=== PATIENT | female | born 1985 | race Two or more races ===

== ENCOUNTER 2025-05-28 17:43 | Emergency (ER) | payer MEDICAID, OTHER ==
[~2025-05-28] VITALS: Ht 157.5 cm; Wt 45.8 kg
[2025-05-28 18:10] VITALS: PULSE 104; RESP 12; O2SAT 98
--- NOTE | 2025-05-28 18:16 | ED.PDOC ---
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 Patient states that she is currently [id number] and has been experiencing vaginal bleeding onset, last night (05/27/25). She has established care with an Ob, and was told that she had a blighted ovum. Patient reports, was said to be an "anembryonic " and was said to be non-viable by her OB-PIPELINE TECHNICIAN. Patient relays, bleeding quality to be heavy with clots and to not have passed any products of conception or tissue since commencement of symptoms. Patient endorses, filling a brief every [id number]. Patient denies fatigue, faintness, nausea, vomiting, or dizziness. No other symptoms or modifying factors are present at this time. Chief Complaint: Vaginal Bleed Time Seen by MD: 18:30 Reviewed Notes: Nurses Notes, Medications, Allergies Allergies: Coded Allergies: Amoxicillin (Verified Allergy, Severe, 05/28/25) Clavulanic Acid (Verified Allergy, Severe, 05/28/25) Penicillins (Verified Allergy, Severe, 05/28/25) Cephalexin (Verified Allergy, Intermediate, RASH, 05/28/25) Information Source: Patient Mode of Arrival: Ambulatory Timing: Days Prehospital treatment: None Severity: Moderate Vaginal Discharge: None Vaginal Lesions: None Bleeding Quality: Bright Red Vaginal Mass: None Onset Of Mass/Bleeding: Spontaneous Sexual Activity: Last Consensual [place]: Unknown Control: None History of: Current Blood Type: Unknown Associated Signs and Symptoms: Vaginal Bleeding Past Medical History PAST MEDICAL HISTORY: Denies Surgical History: Denies all surgeries PIPELINE TECHNICIAN History: Denies all PIPELINE TECHNICIAN Hx Family History Family History: Unknown Social History Smoker: Non-Smoker Alcohol: Denies ETOH Use Drugs: Denies Drug Use Lives In: Home Constitutional: denies: chills, diaphoresis, fatigue, fever, malaise, sweats, weakness, others EENTM: denies: blurred vision, double vision, ear bleeding, ear discharge, ear drainage, ear pain, ear ringing, eye pain, eye redness, hearing loss, mouth pain, mouth swelling, nasal discharge, nose bleeding, nose congestion, nose pain, photophobia, tearing, throat pain, throat swelling, voice changes, others Respiratory: denies: cough, hemoptysis, orthopnea, SOB at rest, shortness of breath, SOB with excertion, stridor, wheezing, others Cardiovascular: denies: chest pain, dizzy spells, diaphoresis, Dyspnea on exertion, edema, irregular heart beat, left arm pain, lightheadedness, palpitations, PND, syncope, others Gastrointestinal: denies: abdomen distended, abdominal pain, blood streaked bowels, constipated, diarrhea, dysphagia, difficulty swallowing, hematemesis, melena, nausea, poor appetite, poor fluid intake, rectal bleeding, rectal pain, vomiting, others Genitourinary: reports: abnormal vagina bleeding, pain, ; denies: burning, dyspareunia, dysuria, flank pain, frequency, hematuria, incontinence, vagina discharge, urgency, others Neurological: denies: dizziness, fainting, headache, left sided numbness, left sided weakness, numbness, paresthesia, pre-existing deficit, right sided numbness, right sided weakness, seizure, speech problems, tingling, tremors, weakness, others Musculoskeletal: denies: back pain, gout, joint pain, joint swelling, muscle pain, muscle stiffness, neck pain, others Integumetry: denies: bruises, change in color, change in hair/nails, dryness, laceration, lesions, lumps, rash, wounds, others Allergic/Immunocompromised: denies: Difficulty Healing, Frequent Infections, Hives, Itching, others Hematologic/Lymphatic: denies: anemia, blood clots, easy bleeding, easy bruising, swollen glands, others Endocrine: denies: excessive hunger, excessive sweating, excessive thirst, excessive urination, flushing, intolerance to cold, intolerance to heat, un explained weight gain, unexplained weight loss, others Psychiatric: denies: anxiety, bipolar disorder, depression, hopeless, panic disorder, schizophrenia, sleepless, suicidal, others All Other Systems: Reviewed and Negative Physical Exam General Appearance: No Apparent Distress, Normal HEENT: Normal ENT Inspection, Pharynx Normal Neck: Full Range of Motion, Non-Tender, Normal, Normal Inspection Respiratory: Chest Non-Tender, Lungs Clear, No Accessory Muscle Use, No Respiratory Distress, Normal Breath Sounds Cardiovascular: No Edema, No Murmur, No Gallop, Normal Peripheral Pulses, Tachycardia Breast Exam: Deferred Gastrointestinal: No Organomegaly, Non Tender, No Pulsatile Mass, Normal Bowel Sounds, Soft Genitalia: Deferred Pelvic: Deferred Rectal: Deferred Extremities: No calf tenderness, Normal capillary refill, Normal inspection, Normal range of motion, Non-tender, No pedal edema Musculoskeletal : Apperance: Normal Neurologic: Alert, mud tank operator II-XII nml as Tested, No Motor Deficits, Normal Affect, Normal Mood, No Sensory Deficits Cerebellar Function: Normal Reflexes: Normal Skin: Dry, Normal Color, Warm Lymphatic: No Adenopathy Was a procedure done? Was a procedure done?: No Differential Diagnosis (PIPELINE TECHNICIAN) Vaginal Bleeding: - Incomplete, - Inevitable, - Threatened, Blood Loss Anemia, Ectopic X-Ray, Labs, Meds, VS Vital Signs Date Time Temp Pulse Resp B/P (MAP) Pulse Ox O2 Delivery O2 Flow Rate FiO2 05/28/25 20:00 82 05/28/25 19:40 98.8 97 15 122/73 (89) 98 98.8 05/28/25 19:30 Room Air* 0 N/A Nasal Cannula* 05/28/25 18:10 98.0 104 12 128/88 (101) 98 98.0 05/28/25 18:10 104 12 98 Room Air* 0 21 05/28/25 17:46 97.8 140 19 138/100 98 97.8 Lab Test 05/28/25 19:19 05/28/25 18:39 Range/Units White Blood Count 10.1 4.4-10.8 10^3/uL Red Blood Count 4.30 4.0-5.20 10^6/uL Hemoglobin 13.5 12.2-16.2 g/dL Hematocrit 39.1 36.0-46.0 % Mean Corpuscular Volume 91.0 80.0-100.0 fL Mean Corpuscular Hemoglobin 31.3 28.0-32.0 pg Mean Corpuscular Hemoglobin Concent 34.4 32.0-36.0 g/dL Red Cell Distribution Width 13.7 11.8-14.3 % Platelet Count 233 140-450 10^3/uL Mean Platelet Volume 7.6 6.9-10.8 fL Neutrophils (%) (Auto) 82.2 H 37.0-80.0 % Lymphocytes (%) (Auto) 10.9 10.0-50.0 % Monocytes (%) (Auto) 6.4 0.0-12.0 % Eosinophils (%) (Auto) 0.3 0.0-7.0 % Basophils (%) (Auto) 0.2 0.0-2.0 % Neutrophils # (Auto) 8.3 1.6-8.6 10 ^3/uL Lymphocytes # (Auto) 1.1 0.4-5.4 10 ^3/uL Monocytes # (Auto) 0.6 0-1.3 10 ^3/uL Eosinophils # (Auto) 0 0-0.8 10 ^3/uL Basophils # (Auto) 0 0-0.2 10 ^3/uL Nucleated Red Blood Cells 0.1 % Prothrombin Time 10.9 9.3-11.8 sec Prothrombin Time INR 1.03 0.9-1.15 Activated Partial Thromboplast Time 27.1 24.5-34.5 SEC Sodium Level 140 136-145 mmol/L Potassium Level 3.6 3.5-5.1 mmol/L Chloride Level 105 98-107 mmol/L Carbon Dioxide Level 23 20-31 mmol/L Anion Gap 12 5-15 Blood Urea Nitrogen 10 9-23 mg/dL Creatinine 0.74 0.550-1.02 mg/dL Glomerular Filtration Rate Calc 106 >90 mL/min BUN/Creatinine Ratio 13.5 10.0-20.0 Serum Glucose 96 74-106 mg/dL Calcium Level 8.7 8.7-10.4 mg/dL Beta HCG, Quantitative 2093.0 H 1.5-4.2 mIU/mL Urine Color Colorless Yellow Urine Clarity Turbid H Clear Urine pH 5.5 5.0-9.0 Urine Specific [place] 1.013 1.001-1.035 Urine Protein Trace H Negative Urine Ketones 2+ H Negative Urine Blood 3+ H Negative /uL Urine Nitrite Negative Negative Urine Bilirubin Negative Negative Urine Urobilinogen Normal Negative mg/dL Urine Leukocyte Esterase 1+ Negative /uL Urine RBC 944 0 - 4 /hpf Urine Microscopic WBC 5 0-5 /HPF Urine Squamous Epithelial Cells None seen <5 /hpf Urine Bacteria None seen None Seen /hpf Urine Glucose Normal Normal mg/dL Current Medications Medications (Trade) Dose Ordered Sig/Susy Route Start Time Stop Time Status Last Admin Sodium Chloride 1,000 ml @ 1,000 mls/hr Q1H ONCE IV 05/28/25 18:30 05/28/25 19:29 DC 05/28/25 19:00 X-Ray, Labs, Meds, VS Comment Patient presenting with pelvic cramping heavy vaginal bleeding with clots in the setting of known blighted ovum. Patient tachycardic on arrival, possibly secondary to pain versus blood loss Lab work (CBC, BMP) to evaluate for evidence of severe anemia, electrolyte abnormality including hypokalemia, hyperkalemia, hypernatremia, hyponatremia, hyperglycemia, hypoglycemia, etc. Beta hCG quantitative Urinalysis to evaluate for hematuria or infection Pelvic ultrasound to evaluate for ectopic, viable , retained products IV fluids Re-evaluate Social determinant surveillance affecting care: Social determinants of health that will affect the patient's care: Poor access to outpatient care/followup (provided outpatient resources) Time of 1ST Reevaluation: 19:00 Reevaluation 1ST: Unchanged Patient Education/Counseling: Diagnosis, Treatment Family Education/Counseling: No Family Present Departure 1 Departure Time of Disposition: 20:44 (On reassessment, patient's symptoms now fully resolved. Labs unremarkable and hemoglobin stable. Ultrasound with no IUP visualized, consistent with complete . Discussed with patient Outpatient follow-up with OB for further evaluation of her symptoms and trending of beta. Given strict return precaution PMD and OB follow-up.) Impression: Primary Impression: Inevitable complete miscarriage without complication Additional Impressions: Vaginal bleeding during Pelvic cramping Disposition: 01 HOME / SELF CARE / HOMELESS Condition: Good Additional Instructions: Your ultrasound did not show a today. Follow-up with your OB for fur ther evaluation. Discharged With: Self Critical Care Note Critical Care Time?: No Stability Stability form required: No Heart Score Heart Score: Heart Score Response (Comments) Value History N/A 0 EKG N/A 0 Age N/A 0 Risk Factors N/A 0 Troponin N/A 0 Total 0 I personally scribed for FAISAL COURTNEY MD ([email or web address]) on 05/28/25 at 18:16. Electronically submitted by Yas Guadarrama ([email or web address]). I personally scribed for FAISAL COURTNEY MD ([email or web address]) on 05/28/25 at 18:54. Electronically submitted by Yas Guadarrama ([email or web address]). FAISAL COURTNEY MD May 28, 2025 18:16
[2025-05-28] MEDS: SODIUM CHLORIDE 0.9% 1,000 ML IV ONE (19:00)
[2025-05-28 19:40] VITALS: BP 122/73; RESP 15; TEMP 98.8; O2SAT 98
[2025-05-28 19:49] LABS: Hematocrit 39.1 % (36.0-46.0); Hemoglobin 13.5 g/dL (12.2-16.2); Mean Corpuscular Hemoglobin 31.3 pg (28.0-32.0); Mean Corpuscular Volume 91.0 fL (80.0-100.0); Nucleated Red Blood Cells % 0.1 %
[2025-05-28 19:51] LABS: Urine Protein, UAD TRACE (Negative)
[2025-05-28 19:59] LABS: Anion Gap 12 (5-15); Carbon Dioxide 23 mmol/L (20-31); Chloride 105 mmol/L (98-107); Potassium 3.6 mmol/L (3.5-5.1); Sodium 140 mmol/L (136-145)
[2025-05-28 20:00] VITALS: PULSE 82
[2025-05-28 20:00] LABS: Calcium 8.7 mg/dL (8.7-10.4)
[2025-05-28 20:05] LABS: BUN/Creatinine Ratio 13.5 (10.0-20.0); Blood Urea Nitrogen 10 mg/dL (9-23); Glucose 96 mg/dL (74-106)
[2025-05-28 20:27] LABS: INR 1.03 (0.9-1.15); Partial Thromboplastin Time 27.1 SEC (24.5-34.5); Prothrombin Time 10.9 sec (9.3-11.8)
--- NOTE | 2025-05-28 20:35 | DVH ---
OB ULTRASOUND <14 WEEKS: HISTORY: vaginal bleeding TECHNIQUE: Multiple real-time grayscale sonographic images of the pelvis with duplex Doppler color flow, spectral and M-mode analysis. Transabdominal images were obtained. The patient denied transvaginal images. FINDINGS: The uterus measures 6.3 x 6.7 x 10.1 cm. Right ovary was not visualized. Left ovary measures 3.5 x 2.8 x 2.3 cm with normal Doppler color flow. 2.1 cm left adnexal cyst. No gestational sac was seen. The endometrium measures 16 mm. IMPRESSION: 1. Limited transabdominal assessment. No intrauterine is seen. Further clinical correlation and correlation with HCG values is suggested. Findings may reflect early or of unknown location. Ectopic cannot be excluded. Close follow-up is suggested.
== END 2025-05-28 20:54 | disposition home or self-care (01) ==
LOC: ER 17:43
DX: O03.4 Incomplete spontaneous abortion without complication (principal); O26.891 Other specified pregnancy related conditions, first trimester; R10.20 Pelvic and perineal pain unspecified side; Z88.1 Allergy status to other antibiotic agents; Z88.0 Allergy status to penicillin; Z3A.01 Less than 8 weeks gestation of pregnancy
CPT/HCPCS: 36415; 76801; 80048; 81001; 84702; 85025; 85610; 85730; 86850; 86900; 86901; 96360; 99284; J7030